=== PATIENT | female | born 1965 | race Caucasian/White ===

== ENCOUNTER 2024-07-31 05:44 | Day surgery (SDC) | payer OTHER, SELFPAY ==
[2024-07-31] VITALS (7 sets, daily range): BP systolic 116–128; BP diastolic 73–94; PULSE 69–73; RESP 16–17; TEMP 36.3–36.5; O2SAT 95–99; BMI 41.6
--- NOTE | 2024-07-31 06:35 | PCM.PRE.AN2 ---
ASA Classification* ASA Classification ASA Classification: 3 Assessment & Plan Anesthesia* Anesthesia Assessment Anesthesia Assessment: Discussed sedation and/or anesthesia options, risks, benefits, and alternatives with patient/parents/legal guardian/POA. Questions invited. The patient/parents/legal guardian/POA seems to understand and agrees to proceed with anesthesia plan. Reviewed the physical assessment, medical history, allergy history and patient home medications list prior to surgery/procedure/anesthetic and documented any changes. Performed airway and anesthesia risk assessments. Anesthesia Type Anesthesia Type: MAC History Source History Obtained from:: Patient and Chart Anesthesia Focused Assessment* Temperature: 97.7 F Pulse Rate: 71 Blood Pressure: 128/94 Respiratory Rate: 17 Pulse Ox: 99 Oxygen Delivery Method: Room Air Airway Assessment Mouth opens: >3 cm Mallampati Score: III Teeth Condition: Caps/Crowns (Tooth #8 is crown. 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 When Was Last Pacemaker Check QUESTION #4 FULL TEXT: You/Your Family Experience fever (hyperthermia) with Anesthesia Last Oral Intake Last Oral intake: Last Oral Intake NPO since 04:30 07/31/24 06:17 Meds taken in AM with sips of Yes 07/31/24 06:17 water? Meds patient instructed to take am of surgery Any additional information?: Yes Meds taken in AM with sips of water?: Yes PONV PONV - foundry supervisor: PONV - foundry supervisor Female Yes 07/23/24 11:28 HX of Motion Sickness No 07/23/24 11:28 HX of N/V After Surgery Yes 07/23/24 11:28 Non-Smoker Yes 07/23/24 11:28 Duration of Surgery greater No 07/23/24 11:28 than 60 minutes Number of Risk Factors 3 07/23/24 11:28 PONV Score Moderate Risk 07/23/24 11:28 Height & Weight Height & Weight: Anesthesia: Height & Weight Height 5 ft 4 in 07/31/24 06:17 Weight: 110 kg 07/31/24 06:17 Body Mass Index (BMI) 41.6 07/31/24 06:17 Respiratory Assessment Respiratory Assessment - foundry supervisor: Respiratory Tract Infection Hx - foundry supervisor Hx Respiratory Tract Infection Yes: SINUS INFECTION / 07/23/24 11:28 TREATED AND RESOLVING Any additional information?: Yes Hx Respiratory Tract Infection: Yes (Sinus infection treated with antibiotics. Completed a week ago.) STOP Sleep Apnea STOP Sleep Apnea - foundry supervisor: STOP Sleep Apnea - foundry supervisor Hx Hypertension No 07/23/24 11:28 Hx Sleep Apnea Yes: INSPIRE 07/23/24 11:28 CPAP No 07/23/24 11:28 BIPAP No 07/23/24 11:28 Do you snore loudly (louder than talking or can be heard Do you often feel tired/ fatigued/ sleepy during daytime? Has anyone observed you stop breathing during sleep? STOP Results Positive 07/23/24 11:28 QUESTION #5 FULL TEXT : Do you snore loudly (louder than talking or can be heard through closed doors)? Tobacco Use History Tobacco Use History - foundry supervisor: Tobacco Use History - foundry supervisor Tobacco Use Smoking Status Never smoker 07/23/24 11:28 Hx Tobacco Use No 07/23/24 11:28 Years Smoking Packs Smoked per Day Smoking Cessation Date was within the last 15 years Hx Smoking Cessation Date Hx Smoking Cessation Counseling Hematologic Medial History Hematologic Hx - foundry supervisor: Hematologic Medical Hx - client manager Hx of Blood Transfusion Yes 07/23/24 11:28 Hx of Transfusion in last 3 No 07/23/24 11:28 Months Date of Last Transfusion (if within last 3 months) Ever experience any problems No 07/23/24 11:28 with transfusion(s)? Specify any problems Hx of Preganancy in last 3 No 07/23/24 11:28 Months Nurse Filling Out Transfusion DSCHRIBER 07/23/24 11:28 & Questions: Date: 07/23/24 07/23/24 11:28 Time: 11:30 07/23/24 11:28 Patient unable to answer at this time (ie. confused, unrespo /Reproduction History /Reproductive History - foundry supervisor: /Reproductive Hx- foundry supervisor Hx Now No 07/23/24 11:28 Gestational Age (in weeks): EDC: Hx Hx Para Hx Section SAB No 07/23/24 11:28 Active Medications Active Medications: Current Medications Generic Name Dose Route Start Last Admin Trade Name Freq PRN Reason Stop Dose Admin Cefazolin Sodium 2 gm/ N/A 20 mls @ 400 mls/hr 07/31/24 07:30 IV 07/31/24 07:32 PREOP ONE [facility] Medical History Wears glasses Depression History of steroid therapy Thyroid disease Bladder disease High cholesterol Gastric reflux Non-smoker Sleep apnea Home Medications ?Medication ?Instructions ?Recorded ?Last Taken ?Type atorvastatin 20 mg tablet 40 mg PO DAILY 07/23/24 07/31/24 History cetirizine 10 mg tablet (24Hour 10 mg PO DAILY 07/23/24 07/31/24 History Allergy) escitalopram oxalate 10 mg tablet 10 mg PO DAILY 07/23/24 07/31/24 History esomeprazole magnesium 40 mg 40 mg PO DAILY 07/23/24 07/31/24 History capsule,delayed release (Nexium) levothyroxine 25 mcg tablet 125 mcg PO DAILY 07/23/24 07/31/24 History montelukast 10 mg tablet 10 mg PO DAILY 07/23/24 07/31/24 History Allergy/AdvReac Type Severity Reaction Status Date / Time adhesive tape (adhesives - Allergy Intermediate Rash Verified 07/31/24 06:16 tape) Surgical History History of esophagogastroduodenoscopy (EGD) Hx of colonoscopy History of incision and drainage History of lumbar fusion Hx of lumbar discectomy Hx laparoscopic cholecystectomy Hx of tubal ligation History of partial hysterectomy Social History Smoking Status: Never smoker Review of Systems (Anesthesia) ROS Narrative System reviewed and no additional complaints, except as documented.
[2024-07-31] MEDS: Cefazolin 2 GM in Syringe IV (07:35)
--- NOTE | 2024-07-31 08:00 | PCM.POST.ANE ---
Anesthesia: Postop Eval I Current Vital Signs Temperature: 97.3 F Pulse Rate: 70 Blood Pressure: 122/77 Respiratory Rate: 16 Pulse Ox: 97 Oxygen Delivery Method: Room Air Assessment Airway patent: Yes Spontaneous unlabored respirations: Yes Mental status: Awake and Calm nausea: No Vomiting: No Anesthesia Complication: No Fluid Hydration Crystalloid volume administer (ml): 10 Total IV fluid infused: 10 Progress Note Anesthesia document: Postop Eval 1 completed: Yes
--- NOTE | 2024-07-31 08:01 | EX.PCM.DISCH ---
Discharge Instructions Diet Discharge Diet: No restrictions Activity Discharge Activity: Return to Normal Activity (in 2 days) Lifting Restrictions: no heavy lifting for 2 days Additional Activity Instructions:: no exercise or intercourse for 2 days Dressing / Incision Call your doctor if you observe: Fever of 101 or Higher, Inability to urinate and Inability to have a bowel movement Follow Up Care Please Follow Up With: Geno Lomax MD When: The office will call for follow-up arrangements. Test Results: Test results from this visit will be discussed in further detail at your follow-up appointment, if applicable. Discharge Plan Admission Attending Provider: Geno Lomax Primary Care Provider: Harpreet Pham Instructions Print Language: [place] Discharge Orders/Prescriptions Prescriptions: Continued cetirizine [24Hour Allergy] 10 mg tablet 10 mg PO DAILY atorvastatin 20 mg tablet 40 mg PO DAILY montelukast 10 mg tablet 10 mg PO DAILY escitalopram oxalate 10 mg tablet 10 mg PO DAILY esomeprazole magnesium [Nexium] 40 mg capsule,delayed release(DR/EC) 40 mg PO DAILY levothyroxine 25 mcg tablet 125 mcg PO DAILY Referrals / Follow Up: Harpreet Pham MD [Primary Care Provider] - Disposition Disposition (needs filled in before D/C Order can be placed): Home, Self Care
--- NOTE | 2024-07-31 08:02 | OP.PCM_ITS ---
Operative Report (Standard) Operative Information Date of Procedure: 07/31/24 Pre-Operative Diagnosis: Intrinsic sphincter deficiency, stress urinary incontinence Post-Operative Diagnosis: Same Surgery/Procedure Performed: Cystoscopy with Bulkamid injection industrial engineer: No Type of Anesthesia: MAC RN Documented Start/Stop Times: Operation Date: 07/31/24 07:30 Case Time Into Pre-Op 07/31/24 05:58 Out of Pre-Op 07/31/24 07:28 Anesthesia Start 07/31/24 07:30 Into Room 07/31/24 07:30 Procedure Start 07/31/24 07:43 Procedure End 07/31/24 07:50 Anesthesia End 07/31/24 07:52 Out of Room 07/31/24 07:52 Into Recovery 07/31/24 07:55 Procedure Start Time: 07:43 Procedure Stop Time: 07:50 Select all DRAINS/GRAFTS/IMPLANTS that apply: None (Bulkamid implant) Estimated Blood Loss: <5cc Specimen collected: No Description of surgery: The patient is a 58-year-old female with intrinsic sphincter deficiency with leakage who presents for surgical intervention. Informed consent was obtained. She was taken to the operating room and placed on the operating room table. Anesthesia monitored the head, neck, airway, IV access and vital signs throughout the case. Once anesthesia was appropriately administered she was placed into dorsolithotomy position was prepped and draped in usual sterile fashion. A red rubber catheter was used to cannulate the urethra and the bladder was emptied. Using the Bulkamid cystoscope and sheath, the needle was advanced into the bladder 2 cm with the bevel facing the lumen of the urethra. The apparatus was withdrawn 2 cm. The needle was then inserted 1 cm at the 7 o'clock position and one half of a syringe was injected aching a pillow. This process was then repeated at her 5:00, 1:00, and 11:00 positions. At the end of the injections, there was good coaptation of the urethra. The cystoscope was withdrawn and the procedure was ended. She was awakened and taken to the recovery room in good condition. There were no complications during the procedure. Surgical Findings: 4 pillows were injected with good coaptation at the conclusion of the case. Complications Complications: No Admit VTE Documentation VTE Present on Admission: Yes VTE Mechan Device Prophylaxis: SCD's VTE Pharm Prophylaxis ordered?: No Reason prophylaxis not ordered: Treatment Not Indicated
--- NOTE | 2024-07-31 12:38 | POSTOPAN2_ITS ---
Anesthesia Postop Eval I Sum Postop Eval Completion status Anesthesia document: Postop Eval 1 completed: Yes Anesthesia Postop Eval I Summary Anesthesia Postop Eval I Summary: Anesthesia Postop Eval I: Assessment Summary Airway patent Yes 07/31/24 08:01 SALES ASSOCIATE KEY HOLDER.CONSUELO Spontaneous unlabored Yes 07/31/24 08:01 BARRIE respirations Mental status Awake,Calm 07/31/24 08:01 SALES ASSOCIATE KEY HOLDER.CONSUELO nausea No 07/31/24 08:01 SALES ASSOCIATE KEY HOLDER.CONSUELO Vomiting No 07/31/24 08:01 BARRIE Anesthesia Postop Eval I: Fluid Summary Crystalloid volume administer 10 07/31/24 08:01 BARRIE (ml) Colloids volume administered ( ml) Blood Product volume administered (ml) Total IV fluid infused 10 07/31/24 08:01 BARRIE Anesthesia Postop Eval I: Summary Notes Anesthesia Complication No 07/31/24 08:01 BARRIE Anesthesia Complication Comment: Post-operative progress note Anesthesia: Postop Eval II Evaluation Mental status: Awake and Calm Pain Level: 0 nausea: No Vomiting: No Complications Anesthesia Complication: No
== END 2024-07-31 09:26 | disposition home or self-care (01) ==
LOC: SDC 05:51 → AC 05:55
PROVIDERS: PCP Family Medicine; Referring Provider Urology; Visit Provider Urology
PROC: 3E0K8GC Introduction of Other Therapeutic Substance into Genitourinary Tract, Via Natural or Artificial Opening Endoscopic (ICD-10-PCS; CPT 52287; principal; 2024-07-31 07:20)
DX: N36.42 Intrinsic sphincter deficiency (ISD) (principal); N39.46 Mixed incontinence; N32.81 Overactive bladder; N81.10 Cystocele, unspecified; N81.6 Rectocele; E78.00 Pure hypercholesterolemia, unspecified; Z79.899 Other long term (current) drug therapy
CPT/HCPCS: 51715; 00910; A4216; J2405